=== PATIENT | male | born 1970 | race Caucasian/White ===

== ENCOUNTER 2016-08-18 10:35 | Day surgery (SDC) | payer OTHER ==
[2016-08-17 16:14] VITALS: BMI 33.1
[2016-08-18] VITALS (7 sets, daily range): BP systolic 96–131; BP diastolic 64–86; PULSE 79–96; RESP 14–16; Ht 167.6 cm; Wt 98.4 kg
[~2016-08-18] VITALS: Ht 167.6 cm; Wt 98.4 kg
[2016-08-18] MEDS ORDERED: LIDOCAINE 2% (SDV) 5 ML INJ ONE (11:27)
[2016-08-18] MEDS ORDERED: FENTAnyl 50 MCG/ML VIAL ONE ×2 (11:27→12:55)
[2016-08-18] MEDS ORDERED: MIDAZOLAM 1 MG/ML 2 ML INJ ONE (11:27)
[2016-08-18] MEDS ORDERED: PROPOFOL 20 ML ONE ×2 (11:27→12:55)
[2016-08-18] MEDS ORDERED: HYDROmorphONE (0.2 MG/ML) 10ML SYG IV PRN ×2 (11:30)
[2016-08-18] MEDS ORDERED: OXYCODONE/ACETAMINOPHEN (5/325) TAB PO PRN ×2 (11:30)
[2016-08-18] MEDS ORDERED: FENTAnyl 50 MCG/ML VIAL IV PRN (11:30)
[2016-08-18] MEDS ORDERED: PROCHLORPERAZINE 10 MG INJ IV PRN (11:30)
[2016-08-18] MEDS ORDERED: MEPERIDINE 25 MG INJ IV PRN (11:30)
[2016-08-18] MEDS ORDERED: DIPHENHYDRAMINE 50 MG INJ IV PRN (11:30)
[2016-08-18] MEDS ORDERED: ONDANSETRON 4 MG INJ IV PRN (11:30)
[2016-08-18] MEDS ORDERED: KETOROLAC 30 MG INJ IV ONE (11:30)
[2016-08-18] MEDS ORDERED: HYDR-3011 PO ×2 (11:34)
[2016-08-18] MEDS ORDERED: SERT-165 PO (11:38)
[2016-08-18] MEDS ORDERED: FOLI-49 PO (11:38)
[2016-08-18] MEDS ORDERED: CHOL100062 PO (11:39)
[2016-08-18] MEDS ORDERED: CYCL-319 PO (11:41)
[2016-08-18] MEDS ORDERED: OMEP20CA16 PO (11:42)
[2016-08-18] MEDS ORDERED: DOCU-159 PO (11:43)
[2016-08-18] MEDS ORDERED: CEFAZOLIN 2 GM/50 ML (PMX) 50 ML IVPB ONE (12:00)
[2016-08-18] MEDS ORDERED: SOD CHLORIDE 0.9% 1,000 ML IV SCH (12:00)
[2016-08-18] MEDS ORDERED: BUPIVACAINE 0.25% (MPF) 10 ML 10 ML VIAL ONE (12:20)
[2016-08-18] MEDS ORDERED: SUCCINYLCHOLINE CHLORIDE 100 MG/5 ML SYG IV ONE (12:25)
[2016-08-18] MEDS ORDERED: CEFAZOLIN 1 GM INJ ONE (12:25)
[2016-08-18] MEDS ORDERED: DEXAMETHASONE 4 MG/ML 1 ML INJ ONE (12:39)
[2016-08-18] MEDS ORDERED: ONDANSETRON 4 MG INJ ONE (12:39)
--- NOTE | 2016-08-18 13:15 | OPR ---
Date/Time of Note Date/Time of Note DATE: 08/18/16 TIME: 13:14 Operative Report Procedure Date: Aug 18, 2016 Preoperative Diagnosis perianal mass Postoperative Diagnosis posterior perianal mass excision with 7 cm incision and 7x2 cm mass localized adjacent tissue transfer with the use of skips 14 sq cm defect rigid proctoscopy Surgeon: Aide WELLER Specimens perianal mass Aide WELLER Aug 18, 2016 13:15
--- NOTE | 2016-08-18 13:26 | OPR ---
DATE OF OPERATION: 08/18/2016 INDICATION: This is a 46-year-old male with a perianal mass in the posterior area. He requests johnathon gical excision. Risks, alternatives, benefits, and personnel were discussed with the patient. Kezia ent expresses understanding and consents to the operation. PREOPERATIVE DIAGNOSIS: Perianal mass. POSTOPERATIVE DIAGNOSIS: Perianal mass. OPERATION PERFORMED: 1. Perianal mass resection with 7 cm in size incision and 7 x 2 cm size mass. 2. Localized adjacent tissue transfer with the use of skin flaps with a 14 square cm defect. 3. R igid proctoscopy. SURGEON: Deidre Webster MD SPECIMEN: Perianal mass posterior. COMPLICATIONS: None. ANESTHESIA: General. PROCEDURE: The patient was taken to the OR and prepped and draped in the usual sterile fashion. Serna rgical timeout was performed, IV antibiotics were given. Rigid proctoscopy was performed. There is no evidence of any masses or lesions or any connections to the posterior perianal mass. A 15 blade was used to excise the perianal mass all the way down to the bone. Dissection cautery was carried down to bone. There was good hemostasis. The mass was resected. Due to the large tissue defect, b ilateral localized adjacent tissue transfer with the use of skin flaps was performed and closed in t he midline. Multilayer closure with interrupted 2-0 Vicryl and skin was closed with interrupted 2-0 nylon. Local anesthesia was injected. Dry dressings were applied. Dictated By: DEIDRE HANNA/GAYLA Conf#: [id number] DID#: [id number]
[2016-08-18] MEDS ORDERED: HYDROCODONE/APAP (5/325) TAB PO ONE (13:30)
== END 2016-08-18 15:00 | disposition home or self-care (01) ==
LOC: SDS 10:35
PROVIDERS: ATTEND Surgery
DX: L05.91 Pilonidal cyst without abscess (principal); I10 Essential (primary) hypertension; E66.9 Obesity, unspecified; Z68.35 Body mass index [BMI] 35.0-35.9, adult
CPT/HCPCS: 11772; 88307; J0690; J1100; J1885; J2250; J2405; J3010; J7999; Z7512; Z7610